=== PATIENT | male | born 1945 | race Caucasian/White ===

== ENCOUNTER → 2016-12-01 | Outpatient (CLI) | payer MEDICARE, OTHER ==
--- NOTE | 2016-12-01 21:45 | US ---
EXAMINATION TYPE: US MSK left ankle, Achilles tendon. DATE OF EXAM: 12/01/2016 11:52 AM COMPARISON: None available CLINICAL HISTORY: 71-year-old male Achilles tendinitis, unspecified leg, patient jumped and landed [address] in August and re-injury later in the year, pain and swelling.. TECHNIQUE: Multiple sonographic images of the left ankle for assessment of the Achilles tendon. Findings: There is extensive abnormality of the Achilles tendon. Along the proximal third fibers, there is marked fusiform thickening measuring up to 1.9 cm AP follow ed by a markedly attenuated and heterogeneous segment measuring only 5.5 mm thick. Below this is a se cond area of marked fusiform thickening at the level of the middle third Achilles tendon measuring 1. 9 cm AP dimension. The insertional fibers are intact. The proximal balled up stump is located approximately 10 cm above the posterior calcaneus. The distal balled up stump is located approximately 6.8 cm proximal to the calcaneus. There is no significant fluid collection. Overlying subcutaneous soft tissue swelling and edema is noted. IMPRESSION: Findings suspicious for subacute to chronic extensive partial tear vs scarred down rupture at the le casi of the middle third segment of the Achilles tendon.
== END | disposition home or self-care (01) ==
LOC: RADUSWWP 10:36
PROVIDERS: ATTEND Family Medicine
DX: M25.572 Pain in left ankle and joints of left foot (principal); M76.62 Achilles tendinitis, left leg

== ENCOUNTER → 2021-04-23 | Outpatient (CLI) | payer MEDICARE, OTHER ==
[2021-04-23 12:32] LABS: HCT 31.1 % (39.0-53.0); HGB 10.9 gm/dL (13.0-17.5); MCH 32.1 pg (25.0-35.0); MCHC 35.1 g/dL (31.0-37.0); MCV 91.5 fL (80.0-100.0); Platelet Count 184 k/uL (150-450); RBC 3.41 m/uL (4.30-5.90); RDW 15.2 % (11.5-15.5); WBC 5.5 k/uL (3.8-10.6)
[2021-04-23 12:49] LABS: Albumin 4.1 g/dL (3.5-5.0); Calcium 9.2 mg/dL (8.4-10.2); Potassium 4.5 mmol/L (3.5-5.1); Total Bilirubin 0.3 mg/dL (0.2-1.3); Total Protein 6.8 g/dL (6.3-8.2)
[2021-04-23 12:51] LABS: INR 0.9 (<1.2)
[2021-04-23 12:55] LABS: Partial Thromboplastin Time 20.9 sec (22.0-30.0)
[2021-04-23 13:23] LABS: Appearance,Urine Clear (Clear); Bilirubin,Urine Negative (Negative); Blood,Urine Negative (Negative); Color,Urine Yellow; Glucose,Urine (UA) Negative (Negative); Ketones,Urine Negative (Negative); Leukocyte Esterase,Urine Moderate (Negative); Nitrite,Urine Negative (Negative); PH, Urine 5.5 (5.0-8.0); Protein,Urine Negative (Negative); RBC,Urine 1 /hpf (0-5); Specific Gravity,Urine 1.016 (1.001-1.035); Squamous Epithelial Cell,Urine <1 /hpf (0-4); Urobilinogen,Urine <2.0 mg/dL (<2.0); WBC,Urine 7 /hpf (0-5)
== END | disposition home or self-care (01) ==
LOC: LABPAT 11:37
PROVIDERS: ATTEND Orthopaedic Surgery
DX: Z01.812 Encounter for preprocedural laboratory examination (principal); M16.12 Unilateral primary osteoarthritis, left hip; I25.2 Old myocardial infarction; R94.31 Abnormal electrocardiogram [ECG] [EKG]
CPT/HCPCS: 36415; 80053; 81001; 85027; 85610; 85730; 86850; 86900; 86901; 87070; 93005

== ENCOUNTER 2021-04-26 13:40 | Day surgery (SDC) | payer MEDICARE ==
[2021-04-21 11:41] VITALS: BMI 31.6
[~2021-04-26 13:40] MED LIST: ACETAMINOPHEN TAB 500 MG TAB PO PRN; HYDROmorphone 0.5 MG/0.5 ML SYRINGE IVP PRN; MELOXICAM 7.5 MG TAB PO PRN; ONDANSETRON 4 MG/2 ML VIAL IVP PRN; TRANEXAMIC ACID 1,000 MG in SODIUM CHLORIDE 0.9% 100 ML IVPB PRN
[2021-04-26 14:29] LABS: Glucose,Whole Blood 109 mg/dL (75-99)
[2021-04-26] MEDS: LACTATED RINGERS 1,000 ML IV SCH ×3 (14:43→23:59)
[2021-04-26] MEDS ORDERED: LIDOCAINE 1% (10MG/ML) FOR IV START INTRADERMA ONE (14:44)
[2021-04-26] MEDS ORDERED: PHENYLEPHRINE-0.9% NACL SYG 1,000 MCG/10 ML SYRINGE ONE (15:34)
[2021-04-26] MEDS ORDERED: TRANEXAMIC ACID 1,000 MG/10 ML VIAL ONE (15:34)
[2021-04-26] MEDS ORDERED: SODIUM CHLORIDE 0.9% 100 ML BAG ONE (15:34)
[2021-04-26] MEDS ORDERED: fentaNYL (PF) 50 MCG/ML 2 ML AMP ONE (15:34)
[2021-04-26] MEDS ORDERED: ePHEDrine SULFATE/0.9% NACL/PF 50 MG/5 ML SYRINGE IV ONE (15:34)
[2021-04-26] MEDS ORDERED: KETAMINE 10 MG/ML 20 ML VIAL ONE (15:34)
[2021-04-26] MEDS ORDERED: PROPOFOL 10 MG/ML 20 ML VIAL IV ONE (15:34)
[2021-04-26] MEDS ORDERED: MIDAZOLAM 2 MG/2 ML VIAL ONE (15:34)
[2021-04-26] MEDS ORDERED: HYDROmorphone 0.2 MG/1 ML SYRINGE IVP PRN (15:43)
[2021-04-26] MEDS ORDERED: MAGNESIUM HYDROXIDE 2,400 MG/10 ML CUP PO PRN (15:43)
[2021-04-26] MEDS ORDERED: HYDROmorphone 0.5 MG/0.5 ML SYRINGE IVP PRN ×2 (15:43)
[2021-04-26] MEDS ORDERED: HYDROcodone/APAP 7.5-325MG 1 EACH TAB PO PRN (15:43)
[2021-04-26] MEDS ORDERED: NALOXONE 0.4 MG/ML 1 ML VIAL IV PRN (15:43)
[2021-04-26] MEDS: ROPIVACAINE/EPI/CLONIDINE/KET 50 ML SYRINGE MISCELLANE PRN ×2 (16:24→17:31)
--- NOTE | 2021-04-26 17:51 | P.OP ---
Date of Procedure: 04/26/21 Procedure(s) Performed: PREOPERATIVE DIAGNOSIS: Right hip severe osteoarthritis POSTOPERATIVE DIAGNOSIS: Right hip severe osteoarthritis OPERATION: Right hip total replacement arthroplasty (hybrid implantation with metal on polyethylene articulation). ANESTHESIA: Spinal ESTIMATED BLOOD LOSS: 200 ml. STAKING PRESS OPERATOR: Laurie Haq PA-C (assistance with: patient positioning, retraction, exposure, hemostasis, leg positioning, implantation, irrigation, closure, dressing) COMPLICATIONS: None apparent. COMPONENTS IMPLANTED: Jerry continuum acetabular cup with cluster holes; continuum longevity 15 elevated liner, 32 mm inner diameter; Jerry VerSys femoral stem; VerSys 32 mm femoral head with 7 mm neck length extension INDICATIONS: Mr. Aguilar is a 76-year-old male with significant end-stage osteoarthritis involving the right hip and commensurate severe symptoms. He presents to the operating room today for total hip replacement. He has a history of a chronic slowly healing wound on his lower right leg that he has had for several months. He is receiving local wound care and has been cleared for hip surgery. Even though he has been cleared, I have discussed extensively with him that he is still at increased risk for infection in his replaced hip. He understands this but relates that his symptoms at this point have become intolerable. He has collapse of his femoral head and has approximately a 5 cm limb length inequality with the right lower extremity being shorter than the lef t. He also understands that approximately 2 cm of correction is possible but beyond that I cannot with confidence tell him that the rest of the difference will be able to be corrected. He also has a severe hip flexion contracture of approximately 25 and severe overall stiffness of the right hip. All of these factors make the hip replacement surgery much more unpredictable. I have discussed the steps of the operation as well as other potential risks and complications as being inclusive of, but not limited to: bleeding, infection, scarring, discomfort, or vessel and/or nerve damage,stiffness, need for further surgery, loosening, dislocation, wear, osteolysis, limb length inequality (which I told him would be unable to be fully corrected by this current surgery), fracture, blood clot, pulmonary embolism, , persistent limp, and other risks. The patient is aware of these risks and wishes to proceed with surgery and has signed a consent form. PROCEDURE: After appropriate consent was obtained, the patient was taken to the operating room and placed in supine position. Spinal anesthetic was administered and after confirmation of adequate anesthesia, the patient was placed into the lateral decubitus position with the right side up. Care was taken to make sure that all pressure points were adequately padded and the patient was stabilized to the table with a [place] hip positioner. The right hip was prepped and draped in the usual aseptic fashion using a combination of ChloraPrep and alcohol. Ioban drape was used for the case and the patient received intravenous antibiotics prior to the incision. Timeout was called, confirming patient identity, side, procedure, availability of implants, and administration of IV antibiotics. The incision was created directly over the greater trochanter and carried slightly posteriorly for a posterior approach to the hip. The incision was then deepened down to subcutaneous tissue and fascia darryl. Fascia darryl was split in line with the incision and split proximally along the fibers of the gluteus ko. The underlying fibers of the muscle were teased apart using finger dissection and bleeding vessels were picked up and coagulated. Retractor was then placed posteriorly consisting of a blunt Tommie. The short external rotators and capsule were exposed using good visualization of the attachment of the external rotators to the femur was established. The short external rotators and capsule were released using electrocautery from their femoral attachments. A hockey stick shaped incision was created in the capsule. Joint fluid was evacuated and the patient's hip was able to be dislocated fairly easily. The patient's femoral head was severely arthritic, collapsed, and out of round. The femoral neck cut was created approximately 1 cm superior to the lesser trochanter using a reciprocating saw. The femoral head and neck fragment was removed and attention was then directed to the acetabulum. An anterior acetabular retractor was applied followed by posterior retraction of the capsule with a Meyerding retractor. This afforded good visualization into the acetabular cavity. End-stage arthritis was noted with some degree of superior erosion of the bone. Soft tissue was removed and residual cartilage within the acetabular vault was removed using a curette. Areas appeared to be bone fragments from the collapsed femoral head were noted in the acetabulum and removed. Labrum was severely calcified and was removed using a long-handled knife. Attention was then directed to reaming. The size 46 reamer was used first , followed by increasing increments until the final size reamer was used. Please see the implantation sheet for exact sizes used for the components. Once the final reamer had been utilized to expand the socket it was noted that there was a good supportive bone around the acetabular socket and no further reaming needed to be performed. The trial the same size as the last reamer used was then impacted into the acetabular vault and found to have good fit. The acetabular size, one size (2mm) greater than the trial was then called for. The cluster holes were placed posteriorly and the component was impacted in a position of approximately 40 degrees abduction and 20 degrees anteversion. This matched this patient's [place] anteversion and it was noted that the cup had excellent stability. A 15 elevated liner was inserted with the elevation posterior superior. Anesthetic solution consisting of ropivacaine with epinephrine, clonidine, and ketorolac was injected in a grid-type fashion around the anterior capsule, posterior capsule, abductor fascia, fascia darryl, subcutaneous tissues, and trochanteric bursa. This solution was injected periodically throughout the case depending on the exposure. Attention was then directed back to the proximal femur. Retractors were placed around the proximal femur and box osteotome was used followed by canal finder and trochanteric reamer. Cylindrical reaming was performed. Progressive broaching was then performed starting with a #10 broach and progressing final size, in a position of 10-15 degrees anteversion. [place] anteversion was within 5 degrees of stem position. The final size broach had excellent fit and fill of the patient's metaphysis and diaphysis. Trial reduction was then performed starting with size 32 mm femoral head and various neck combination of stability, limb length equality, and soft tissue tension. It was noted that even with the maximal femoral neck trial length, the limb was still at least 3 cm shorter compared to the contralateral side. Trial components were then removed. Canal plug was inserted, and cement was mixed on the back table and allowed to reach a doughy consistency. The canal was pulse lavaged and brushed with a canal brush. Cement was then inserted retrograde into the canal and pressurized several times with thumb pressurization technique. The femoral stem component was impacted into position. Excess cement was removed. The cement was allowed to harden completely. The implant fit very well and had excellent stability. The femoral head was then impacted onto the Sharif taper. Blood and debris were removed from the acetabular component and the hip was then reduced and checked for stability, limb length and soft tissue tension. These parameters found to be satisfactory, the wound was then thoroughly irrigated with normal saline. Final hemostasis was obtained using electrocautery and IV tranexamic acid, 1 g given at the time of prepping and draping, and another 1 g given at the time of closure. Surgicel clotting agent was also used topically on the wound. Closure of the capsule was performed meticulously using #3 Vicryl suture. Four yrmcoa-tt-hkhbo sutures were placed in the posterior capsule along with repair of the external rotators. The fascia darryl was then repaired using combination of #3 Vicryl suture in interrupted fashion and Quill and running fashion. 2-0 Vicryl suture was used for the subcutaneous tissues and 3-0 Quill for the skin. Dermabond tape was then applied. The patient tolerated the procedure well. There were no complications and the wound bed was dry and there was no need for drain placement. Sterile dressing was then applied and the patient was carefully removed from the operating room table, placed on the stretcher and was taken to the recovery room in stable condition. Sponge and needle counts were correct.
[2021-04-26] MEDS: metFORMIN 500 MG TAB PO SCH (18:09)
[2021-04-26 18:21] LABS: Glucose,Whole Blood 100 mg/dL (75-99)
[2021-04-26] MEDS ORDERED: ALPRAZolam 0.5 MG TAB PO PRN (18:34)
--- NOTE | 2021-04-26 18:49 | XR ---
EXAMINATION TYPE: XR Hip Limited RT DATE OF EXAM: 04/26/2021 COMPARISON: NONE HISTORY: Postop hip surgery TECHNIQUE: Single view FINDINGS: There is right hip prosthesis. Components appear in anatomic position. IMPRESSION: No complicating process seen.
[2021-04-26] MEDS ORDERED: ATORVASTATIN 10 MG TAB PO SCH (21:00)
[2021-04-26] MEDS ORDERED: SENNOSIDES-DOCUSATE SODIUM 1 EACH TAB PO SCH (21:00)
[2021-04-26 21:10] LABS: Glucose,Whole Blood 111 mg/dL (75-99)
--- NOTE | 2021-04-26 21:33 | P.CONS ---
History of Present Illness - Reason for Consult Consult date: 04/26/21 Medical management Requesting physician: Wilber Smith - Chief Complaint Right hip pain - History of Present Illness Consultation: This is a pleasant 76-year-old patient of Dr. Ramu Lara. Chronic stable medical conditions include diabetes mellitus, hypertension, hyperlipidemia, obstructive sleep apnea uses CPAP, cervical neuropathy. Patient has undergone right hip arthroplasty. Postprocedure pain is controlled. No nausea vomiting. Denies any cardiac history. Currently no chest pain or shortness of breath. Laying in bed. Did tolerate a light supper. Review of systems: GEN.: EYES: None HEENT: None NECK: None RESPIRATORY: None CARDIOVASCULAR: None GASTROINTESTINAL: None GENITOURINARY: None MUSCULOSKELETAL: Joint pains] LYMPHATICS: None HEMATOLOGICAL: None PSYCHIATRY: None NEUROLOGICAL: None Past medical history to include: Diabetes mellitus, hyperlipidemia, hypertension, primary osteoarthritis, prostate disorder, obstructive sleep apnea uses CPAP, patient up in the neck Social history: Drinks 2-3 beers a day. Sometimes more on social occasions. Does smoke marijuana frequently. Lives alone. Retired. Family history: Reviewed, noncontributory to presentation Physical examination: VITAL SIGNS: 98.1, 76, 16, 1 35/87, 100% room air GENERAL: BMI 32.7, reclining in bed, comfortable. EYES: Pupils equal. Conjunctiva normal. HEENT: External appearance of nose and ears normal, oral cavity grossly normal. NECK: JVD not raised; masses not palpable. HEART: First and second heart sounds are normal; no edema. LUNGS: Respiratory rate normal; clear to auscultation. ABDOMEN: Soft, nontender, liver spleen not palpable, no masses palpable. PSYCH: Alert and oriented x3; mood and affect normal MUSCULOSKELETAL: Evidence of OA in the hands, dressing over the right hip incision. NEUROLOGICAL: Cranial nerves grossly intact; no facial asymmetry, power and sensation grossly intact. LYMPHATICS: No lymph nodes palpable in the axilla and neck INVESTIGATIONS, reviewed in the clinical context: WBC 5.5. Vitamin 10.9 platelets 184 potassium 4.5 bun 24 creatinine 1.5 Coronavirus [PCR]: Not detected EKG from 04/23/2021: Normal sinus rhythm Assessment and plan: -Right total hip arthroplasty -Obesity BMI 32.7 Weight loss measures, and follow with PCP -Diabetes mellitus type type II on oral hypoglycemic Continue Glucophage. Hold Glucotrol. Follow Accu-Cheks -Chronic kidney disease stage III likely diabetic nephropathy and. Hypertensive nephrosclerosis Follow-up with PCP. Patient is not to take take Mobic or any NSAIDs. -Chronic constipation On Senokot-S -Hyperlipidemia Continue Zocor -BPH On Flomax -Essential hypertension on Diovan hydrochlorothiazide Care was discussed with the patient. Questions answered. Home medications resumed. Follow Accu-Cheks. We'll Glucotrol for now. Patient should follow up with Dr. Lara upon discharge. Thank you Dr. Smith Past Medical History Past Medical History: Diabetes Mellitus, Hyperlipidemia, Hypertension, Osteoarthritis (OA), Prostate Disorder, Sleep Apnea/CPAP/BIPAP Additional Past Medical History / Comment(s): R hip pain, uses CPAP, pinched nerve currently in neck History of Any Multi-Drug Resistant Organisms: None Reported Past Surgical History: Appendectomy, Cholecystectomy, Orthopedic Surgery Additional Past Surgical History / Comment(s): L mandibular surgery, Bilat. knee replacements. Past Anesthesia/Blood Transfusion Reactions: No Reported Reaction Past Psychological History: No Psychological Hx Reported Smoking Status: Former smoker Past Alcohol Use History: Daily Additional Past Alcohol Use History / Comment(s): quit smoking 25 years ago, 1ppd since early , 2-8 beers daily Past Drug Use History: Marijuana Additional Drug Use History / Comment(s): most every day - Past Family History Mother Family Medical History: No Reported History Son(s) Family Medical History: Deep Vein Thrombosis (DVT), Pulmonary Embolus Medications and Allergies Home Medications Medication Instructions Recorded Confirmed Type ALPRAZolam [Xanax] 0.5 mg PO BID PRN 10/19/18 04/26/21 History Ascorbic Acid [Vitamin C] 1,000 mg PO DAILY 10/19/18 04/26/21 History Cholecalciferol (Vitamin D3) 2,000 unit PO DAILY 10/19/18 04/26/21 History [Vitamin D3] Cyanocobalamin (Vitamin B-12) 2,500 mcg PO DAILY 10/19/18 04/26/21 History [Vitamin B-12] Glucosam/Luisito-Msm1/C/Nando/Bosw 1 each PO BID 10/19/18 04/26/21 History [Uzqxvasknzj-Getqxypinax-SUG Tb] Simvastatin [Zocor] 10 mg PO HS 10/19/18 04/26/21 History Valsartan/Hydrochlorothiazide 1 tab PO DAILY 10/19/18 04/26/21 History [Diovan Hct 320-25 mg Tablet] buPROPion HCL [Wellbutrin SR] 150 mg PO BID 10/19/18 04/26/21 History cycloSPORINE 0.05% OPHTH SOLN 1 applicator BOTH EYES DAILY 10/19/18 04/26/21 History [Restasis] glipiZIDE [Glucotrol] 5 mg PO AC-BID 10/19/18 04/26/21 History metFORMIN HCL [Glucophage] 1,000 mg PO BID 10/19/18 04/26/21 History Aspirin 81 mg PO DAILY 04/21/21 04/26/21 History Tamsulosin HCl [Flomax] 0.4 mg PO BID 04/21/21 04/26/21 History Aspirin [Adult Low Dose Aspirin EC] 81 mg PO BID #1 tablet. 04/26/21 Rx HYDROcodone/APAP 7.5-325MG [[place] 1 - 2 tab PO Q6HR PRN #42 tab 04/26/21 Rx 7.5-325] Meloxicam [Mobic] 1 - 2 tab PO DAILY PRN #60 tab 04/26/21 Rx Sennosides-Docusate Sodium 1 tab PO BID #60 tablet 04/26/21 Rx [Senokot-S] Allergies Allergy/AdvReac Type Severity Reaction Status Date / Time No Known Allergies Allergy Verified 04/26/21 14:03 Physical Exam Vitals: Vital Signs Temp Pulse Resp BP Pulse Ox 04/26/21 18:29 98.1 F 76 16 135/87 04/26/21 18:28 76 14 116/64 100 04/26/21 18:13 79 16 123/73 100 04/26/21 17:58 97.9 F 79 14 128/76 99 04/26/21 14:01 98.0 F 85 16 154/86 98 Intake and Output 04/26/21 04/26/21 04/26/21 06:59 14:59 22:59 Intake Total 400 1750 Output Total 200 Balance 400 1550 Intake: IV 400 1750 Output: Estimated Blood Loss 200 Other: Weight 112.4 kg 112.4 kg Results Labs: Abnormal Lab Results - Last 24 Hours (Table) 04/26/21 04/26/21 04/26/21 Range/Units 14:25 18:19 21:09 POC Glucose (mg/dL) 109 H 100 H 111 H (75-99) mg/dL
[2021-04-26] MEDS: TAMSULOSIN 0.4 MG CAP.ER.24H PO SCH (23:08)
[2021-04-26] MEDS: ASPIRIN 81 MG PO SCH (23:08)
[2021-04-26] MEDS: buPROPion SR 150 MG TABLET.ER PO SCH (23:08)
[2021-04-26] MEDS: INSULIN ASPART (NovoLOG) 100 UNIT/ML VIAL SQ SCH (23:11)
[2021-04-27] MEDS: LACTATED RINGERS 1,000 ML IV SCH ×2 (00:08→10:37)
[2021-04-27 07:17] VITALS: BP 143/86; PULSE 90; RESP 16; TEMP 98.4
[2021-04-27 07:32] LABS: Glucose,Whole Blood 159 mg/dL (75-99)
[2021-04-27] MEDS ORDERED: CYANOCOBALAMIN 500 MCG TAB PO SCH (09:00)
[2021-04-27] MEDS ORDERED: CHOLECALCIFEROL 25 MCG (1000 IU) TABLET PO SCH (09:00)
[2021-04-27] MEDS ORDERED: hydroCHLOROthiazide 25 MG TAB PO SCH (09:00)
[2021-04-27] MEDS ORDERED: MELOXICAM 7.5 MG TAB PO SCH (09:00)
[2021-04-27] MEDS ORDERED: cycloSPORINE 0.05% OPHTH 0.4 ML DROPERETTE BOTH EYES SCH (09:00)
[2021-04-27] MEDS ORDERED: ASCORBIC ACID 500 MG TAB PO SCH (09:00)
[2021-04-27] MEDS ORDERED: VALSARTAN 160 MG TAB PO SCH (09:00)
--- NOTE | 2021-04-27 09:10 | P.DS ---
Providers Expected date of discharge: 04/27/21 Attending physician: Wilber Smith Consults: 04/26/21 18:33 Consult Physician Routine Consulting Provider: Endy Gonzalez Consult Reason/Comments: medical management Do you want consulting provider notified?: Yes Primary care physician: Ramu Lara - Discharge Diagnosis(es) (1) Osteoarthritis of right hip Current Visit: Yes Status: Acute (2) S/P total hip arthroplasty Current Visit: Yes Status: Acute Hospital Course: This is a 76-year-old male with known history of degenerative arthritis of the right hip. The patient presented for evaluation as an outpatient. After discussion and consideration patient elects to proceed with total hip arthroplasty. The patient is seen preoperatively by Dr. Smith and medically cleared for surgery by their primary care physician. Patient is admitted to [facility] on 04/26/2021 for total hip arthroplasty. The procedure is performed without complication or sequelae. The patient is doing well postoperatively. Labs and vital signs are stable on day of discharge. On day of discharge patient's hip incision is healing well. There is minimal erythema. There is no drainage noted at this time. There is minimal soft tissue swelling to the hip and thigh. Patient has full foot and ankle motion without difficulty or pain. Calf is soft and nontender to palpation. Neurovascular status to the right lower extremity is intact. Patient is discharged home in good condition. Please see med rec for accurate list of home medications. Plan - Discharge Summary Discharge Rx Participant: Yes New Discharge Prescriptions: New Aspirin [Adult Low Dose Aspirin EC] 81 mg PO BID #1 tablet.dr Mcgee-Docusate Sodium [Senokot-S] 1 tab PO BID #60 tablet HYDROcodone/APAP 7.5-325MG [[place] 7.5-325] 1 - 2 tab PO Q6H PRN #42 tab PRN Reason: Pain No Action Glucosam/Luisito-Msm1/C/Nando/Bosw [Uokeommgace-Ssgkowndjzq-SGD Tb] 1 each PO BID Cholecalciferol (Vitamin D3) [Vitamin D3] 2,000 unit PO DAILY Cyanocobalamin (Vitamin B-12) [Vitamin B-12] 2,500 mcg PO DAILY cycloSPORINE 0.05% OPHTH SOLN [Restasis] 1 applicator BOTH EYES DAILY ALPRAZolam [Xanax] 0.5 mg PO BID PRN PRN Reason: Anxiety metFORMIN HCL [Glucophage] 1,000 mg PO BID glipiZIDE [Glucotrol] 5 mg PO AC-BID Simvastatin [Zocor] 10 mg PO HS buPROPion HCL [Wellbutrin SR] 150 mg PO BID Valsartan/Hydrochlorothiazide [Diovan Hct 320-25 mg Tablet] 1 tab PO DAILY Ascorbic Acid [Vitamin C] 1,000 mg PO DAILY Aspirin 81 mg PO DAILY Tamsulosin HCl [Flomax] 0.4 mg PO BID Discharge Medication List ALPRAZolam [Xanax] 0.5 mg PO BID PRN 10/19/18 [History] Ascorbic Acid [Vitamin C] 1,000 mg PO DAILY 10/19/18 [History] Cholecalciferol (Vitamin D3) [Vitamin D3] 2,000 unit PO DAILY 10/19/18 [History] Cyanocobalamin (Vitamin B-12) [Vitamin B-12] 2,500 mcg PO DAILY 10/19/18 [History] Glucosam/Luis[place]-Msm1/C/Nando/Bosw [Yjansyvmmmd-Idpvayehdpw-TJF Tb] 1 each PO BID 10/19/18 [History] Simvastatin [Zocor] 10 mg PO HS 10/19/18 [History] Valsartan/Hydrochlorothiazide [Diovan Hct 320-25 mg Tablet] 1 tab PO DAILY 10/19/18 [History] buPROPion HCL [Wellbutrin SR] 150 mg PO BID 10/19/18 [History] cycloSPORINE 0.05% OPHTH SOLN [Restasis] 1 applicator BOTH EYES DAILY 10/19/18 [History] glipiZIDE [Glucotrol] 5 mg PO AC-BID 10/19/18 [History] metFORMIN HCL [Glucophage] 1,000 mg PO BID 10/19/18 [History] Aspirin 81 mg PO DAILY 04/21/21 [History] Tamsulosin HCl [Flomax] 0.4 mg PO BID 04/21/21 [History] Aspirin [Adult Low Dose Aspirin EC] 81 mg PO BID #1 tablet. 04/26/21 [Rx] Sennosides-Docusate Sodium [Senokot-S] 1 tab PO BID #60 tablet 04/26/21 [Rx] HYDROcodone/APAP 7.5-325MG [[place] 7.5-325] 1 - 2 tab PO Q6H PRN #42 tab 04/27/21 [Rx] Follow up Appointment(s)/Referral(s): Ramu Lara MD [Primary Care Provider] - 1 Week Wilber Smith MD [STAFF PHYSICIAN] - 2 Weeks Activity/Diet/Wound Care/Special Instructions: May bear wt as tolerated w walker. May shower 48h post op. Continue hip dislocation precautions. Continue use of pillow between legs for 6 weeks while sleeping. Leave Optifoam dressing intact 7-10 days. Discharge Disposition: HOME WITH HOME HEALTH SERVICES
[2021-04-27] MEDS: TAMSULOSIN 0.4 MG CAP.ER.24H PO SCH (09:11)
[2021-04-27] MEDS: metFORMIN 500 MG TAB PO SCH (09:11)
[2021-04-27] MEDS: ASPIRIN 81 MG PO SCH (09:11)
[2021-04-27] MEDS: INSULIN ASPART (NovoLOG) 100 UNIT/ML VIAL SQ SCH (09:12)
[2021-04-27] MEDS: buPROPion SR 150 MG TABLET.ER PO SCH (09:13)
[2021-04-27 11:09] LABS: Basophils # (A) 0.02 X 10*3/uL (0.00-0.10); Basophils % (A) 0.3 %; Eosinophils # (A) 0.15 X 10*3/uL (0.04-0.35); Eosinophils % (A) 2.4 %; HCT 27.7 % (39.6-50.0); HGB 9.1 g/dL (13.0-17.0); Lymphocytes # (A) 0.87 X 10*3/uL (0.90-5.00); Lymphocytes % (A) 14.1 %; MCHC 32.9 g/dL (32.0-37.0); MCV 94.2 fL (80.0-97.0); Mean Platelet Volume 10.8 fL (9.5-12.2); Monocytes # (A) 0.83 X 10*3/uL (0.20-1.00); Monocytes % (A) 13.5 %; Neutrophils # (A) 4.28 X 10*3/uL (1.80-7.70); Neutrophils % (A) 69.4 %; Platelet Count 156 X 10*3/uL (140-440); RBC 2.94 X 10*6/uL (4.40-5.60); RDW 15.5 % (11.5-14.5); WBC 6.17 X 10*3/uL (4.50-10.00)
--- NOTE | 2021-04-27 21:27 | P.PN ---
Progress Note - Text Progress Note Date: 04/27/21 - Chief Complaint Right hip pain Consultation: This is a pleasant 76-year-old patient of Dr. Ramu Lara. Chronic stable medical conditions include diabetes mellitus, hypertension, hyperlipidemia, obstructive sleep apnea uses CPAP, cervical neuropathy. Patient has undergone right hip arthroplasty. Today: Sitting up. Pain control. No chest pain or shortness of breath. Had a good breakfast. Looking forward to go home. Review of systems: Was done for constitutional, cardiovascular, GI, pulmonary. relevant finding as above Current medications reviewed in today's electronic records Past medical history to include: Diabetes mellitus, hyperlipidemia, hypertension, primary osteoarthritis, prostate disorder, obstructive sleep apnea uses CPAP, patient up in the neck Social history: Drinks 2-3 beers a day. Sometimes more on social occasions. Does smoke marijuana frequently. Lives alone. Retired. Family history: Reviewed, noncontributory to presentation Physical examination: VITAL SIGNS: 98.4, 90, 16, 143/86, 97% room air GENERAL: Sitting up in a chair, comfortable. EYES: Pupils equal. Conjunctiva normal. NECK: JVD not raised; masses not palpable. HEART: First and second heart sounds are normal; no edema. LUNGS: Respiratory rate normal; clear to auscultation. ABDOMEN: Soft, nontender, liver spleen not palpable, no masses palpable. PSYCH: Alert and oriented x3; mood and affect normal MUSCULOSKELETAL: Evidence of OA in the hands, dressing over the right hip incision. INVESTIGATIONS, reviewed in the clinical context: April 27: WBC 6.1 hemoglobin 9.1 platelets 156 WBC 5.5. Vitamin 10.9 platelets 184 potassium 4.5 bun 24 creatinine 1.5 Coronavirus [PCR]: Not detected EKG from 04/23/2021: Normal sinus rhythm Assessment and plan: -Right total hip arthroplasty -Obesity BMI 32.7 Weight loss measures, and follow with PCP -Diabetes mellitus type type II on oral hypoglycemic Continue Glucophage. Hold Glucotrol. Follow Accu-Cheks -Chronic kidney disease stage III likely diabetic nephropathy and. Hypertensive nephrosclerosis Follow-up with PCP. Patient is not to take take Mobic or any NSAIDs. -Chronic constipation On Senokot-S -Hyperlipidemia Continue Zocor -BPH On Flomax -Essential hypertension on Diovan hydrochlorothiazide Discussed with the patient. Questions answered. Patient should follow up with Dr. Lara upon discharge. Resume glipizide tomorrow. Check Accu-Cheks every morning. Thank you Dr. Smith
== END 2021-04-27 11:16 | disposition home health service (06) ==
LOC: OR 13:40 → 4SSUR 17:58 → OR 04-27 11:16
PROVIDERS: ATTEND Orthopaedic Surgery
DX: I10 Essential (primary) hypertension (principal); E78.5 Hyperlipidemia, unspecified; G47.33 Obstructive sleep apnea (adult) (pediatric); G54.2 Cervical root disorders, not elsewhere classified; M19.91 Primary osteoarthritis, unspecified site; Z79.899 Other long term (current) drug therapy; Z87.11 Personal history of peptic ulcer disease; Z98.890 Other specified postprocedural states; Z87.891 Personal history of nicotine dependence
CPT/HCPCS: 27130; 97110; 97161; 97535; 97165; 85025; 88300; 87635; 73501; C1776; C1713; J2250; S0106 ×2; J0690 ×2; J2405; J3010; J2370; J2704; 36415; 86850; 86900; 86901

== ENCOUNTER → 2023-04-29 | Outpatient (CLI) | payer MEDICARE ==
[2023-04-30 01:16] LABS: Appearance,Urine Clear (Clear); Bilirubin,Urine Negative (Negative); Blood,Urine Negative (Negative); Color,Urine Yellow (Yellow); Ketones,Urine Negative (Negative); Nitrite,Urine Negative (Negative); PH, Urine 5.5; Specific Gravity,Urine 1.011 (1.001-1.030); Urobilinogen,Urine 0.2 E.U./DL
[2023-04-30 08:11] LABS: HCT 32.7 % (39.6-50.0); HGB 10.2 d/dL (12.0-15.0); MCH 30.4 pg (27.0-32.0); MCHC 31.2 d/dL (32.0-37.0); MCV 97.6 FL (80.0-97.0); Mean Platelet Volume 10.9 FL (9.5-12.2); NRBC Per 100 WBC 0 X 10*3/uL (0.00-0.01); Platelet Count 214 X 10*3/uL (140-440); RBC 3.35 X 10*6/uL (4.40-5.60); RDW 16.6 % (11.5-14.5); WBC 6.05 X 10*3/uL (4.50-10.00)
[2023-04-30 08:44] LABS: % Iron Saturation 18.87 (15.00-50.00); ALT 19 U/L (10-49); AST 16 U/L (14-35); Albumin 4.2 d/dL (3.8-4.9); Alkaline Phosphatase 90 U/L (41-126); BUN/Creat Ratio 17.94 Ratio (12.00-20.00); Blood Urea Nitrogen 30.5 mg/dL (9.0-27.0); Calcium 9.3 mg/dL (8.7-10.3); Carbon Dioxide 23.9 mmol/L (21.6-31.8); Chloride 103 mmol/L (96-109); Globulin 2.8 d/dL (1.6-3.3); Glucose 180 mg/dL (70-110); Iron 60 UG/DL (65-175); Magnesium 2.1 mg/dL (1.5-2.4); Phosphorus 4.3 mg/dL (2.4-5.1); Potassium 4.7 mmol/L (3.5-5.5); Sodium 137 mmol/L (135-145); Total Bilirubin 0.4 mg/dL (0.3-1.2); Total Iron Binding Capacity 318 UG/DL (228-460); Uric Acid 7.8 mg/dL (3.7-8.7)
== END | disposition home or self-care (01) ==
LOC: LABWHC1 10:02
PROVIDERS: ATTEND Nurse Practitioner Family
DX: N25.81 Secondary hyperparathyroidism of renal origin (principal); N17.9 Acute kidney failure, unspecified; D64.9 Anemia, unspecified; N39.0 Urinary tract infection, site not specified; E55.9 Vitamin D deficiency, unspecified; M10.9 Gout, unspecified
CPT/HCPCS: 36415; 80053; 81003; 82306; 82728; 83540; 83550; 83735; 83970; 84100; 84550; 85027

== ENCOUNTER → 2023-05-17 | Outpatient (CLI) | payer MEDICARE ==
--- NOTE | 2023-05-17 18:34 | US ---
EXAMINATION TYPE: US kidneys/renal and bladder DATE OF EXAM: 05/17/2023 COMPARISON: Renal ultrasound 06/20/2012 CLINICAL INDICATION: Male, 78 years old with history of N17.9 ACUTE KIDNEY FAILURE, UNSPECIFIED; CKD EXAM MEASUREMENTS: Right Kidney: 10.3x5.7x5.4 cm Left Kidney: 11.5x5.4x5.0 cm Right Kidney: No hydronephrosis or masses seen Left Kidney: No hydronephrosis or masses seen Bladder: wall is trabeculated Bilateral Jets seen: Yes Limited examination due to patient's body habitus. There is no evidence for hydronephrosis at this po int in time. No nephrolithiasis is seen. Cortical medullary differentiation is maintained. No rené s are identified. The urinary bladder is anechoic with trabeculated wall. Bilateral ureteral jets a re seen. Spleen is at the top end of normal for size measuring up to 13.1 cm in length. Enlarged pros robbins gland measuring 8.0 x 5.5 cm. IMPRESSION: 1. No nephrolithiasis or hydronephrosis. 2. Trabeculated urinary bladder with enlarged prostate suggesting chronic outlet obstruction.
== END | disposition home or self-care (01) ==
LOC: RADUSWWP 15:18
PROVIDERS: ATTEND Internal Medicine Nephrology
DX: N17.9 Acute kidney failure, unspecified (principal); N40.0 Benign prostatic hyperplasia without lower urinary tract symptoms
CPT/HCPCS: 76770

== ENCOUNTER → 2023-10-09 | Outpatient (CLI) | payer MEDICARE ==
--- NOTE | 2023-10-09 11:08 | US ---
EXAMINATION TYPE: US kidneys/renal and bladder DATE OF EXAM: 10/09/2023 COMPARISON: 05/17 CLINICAL INDICATION: Male, 78 years old with history of N18.32 CKD; CKD f/u EXAM MEASUREMENTS: Right Kidney: 9.6x6.2x5.4 cm Left Kidney: 10.5x5.3x5.2 cm Right Kidney: wnl Left Kidney: wnl Bladder: heterogenous wall Bilateral Jets seen: Yes There is no evidence for hydronephrosis at this point in time. No nephrolithiasis is seen. No rené s are identified. The urinary bladder is anechoic. Bilateral ureteral jets are seen. exam slightly limited by body habitus, prostate appears enlarged, transabdominal volume estimate: 78. 4ml PSA estimate: 9.4 IMPRESSION: Urinary bladder wall heterogeneity is nonspecific. Correlate for cystitis.
== END | disposition home or self-care (01) ==
LOC: RADUSWWP 10:19
PROVIDERS: ATTEND Internal Medicine
DX: N18.32 Chronic kidney disease, stage 3b (principal); N32.89 Other specified disorders of bladder
CPT/HCPCS: 76770

== ENCOUNTER → 2025-02-10 | Outpatient (CLI) | payer MEDICARE ==
--- NOTE | 2025-02-10 10:27 | US ---
EXAMINATION TYPE: US kidneys/renal and bladder DATE OF EXAM: 02/10/2025 COMPARISON: US 2022 CLINICAL INDICATION: Male, 80 years old with history of N18.32 CHRONIC KIDNEY DISEASE, STAGE 3B; TECHNIQUE: Grayscale imaging of the bilateral kidneys and urinary bladder: FINDINGS: EXAM MEASUREMENTS: Right Kidney: 10.0 x 5.7 x 5.0 cm Left Kidney: 9.7 x 5.4 x 5.6 cm Difficult and limited due to patient body habitus Right Kidney: No hydronephrosis or masses seen Left Kidney: No hydronephrosis or masses seen Bladder: wnl Bilateral Jets seen: no Prostate: enlarged There is no evidence for hydronephrosis at this point in time. No nephrolithiasis is seen. No rené s are identified. The urinary bladder is anechoic. IMPRESSION: No hydronephrosis seen bilaterally. [facility], , 02/10/2025 10:25 AM
== END | disposition home or self-care (01) ==
LOC: RADUSWWP 09:31
PROVIDERS: ATTEND Internal Medicine
DX: N18.32 Chronic kidney disease, stage 3b (principal); N40.0 Benign prostatic hyperplasia without lower urinary tract symptoms
CPT/HCPCS: 76770

== ENCOUNTER → 2025-06-13 | Outpatient (CLI) | payer MEDICARE ==
--- NOTE | 2025-06-14 17:37 | PE ---
EXAMINATION TYPE: PET CT fusion skull to thigh DATE OF EXAM: 06/13/2025 CLINICAL INDICATION:Male, 80 years old with history of C43.61 MELANOMA; TECHNIQUE: Following the intravenous administration of 11.5 mCi of F-18 FDG, whole body images are performed from the skull vertex to the toes. Images are reviewed on the computer in the coronal, axi al, and sagittal planes. Reconstructed rotating images are created on independent workstation and re viewed on the computer. A non-contrast CT is performed in conjunction with the PET scan. Glucose le casi 170 mg/dL CT DLP: 1675.3 mGycm, Automated exposure control for dose reduction was used. COMPARISON: CT None, PET/CT None, MRI: None FINDINGS: Mediastinal SUV mean is 2.6. Hepatic parenchyma SUV mean is 3.6. SKULL BASE AND NECK: No suspicious radiotracer activity. CHEST, MEDIASTINUM, AND HILAR REGION: No suspicious radiotracer activity. ABDOMEN AND PELVIS: No suspicious radiotracer activity. MUSCULOSKELETAL STRUCTURES: Heterogenous FDG uptake throughout the spine. Favored to represent degenerative spinal disease. OTHER CT: Bilateral aphakia. Atherosclerotic calcification of the intracranial vasculature. Moderate to severe left and moderate right carotid bifurcation calcifications. Atherosclerotic calcification o f the aorta and its branches. Moderate aortic valvular calcifications. Moderate mitral annulus calcif ications. Mild cardiomegaly. Small right and moderate left pleural effusions with associated atelecta sis. Right apical pleural-parenchymal scarring. Small hiatal hernia. Gallbladder is surgically absent . Nonspecific bilateral perinephric fat stranding. A supraumbilical fat filled small hernia. Distal c olonic diverticulosis without evidence for acute diverticulitis. Enlarged prostate gland measuring 6. 7 cm in transverse dimension. Multiple pelvic phleboliths. Moderate right-sided hydrocele. Postsurgic al changes from right hip arthroplasty. Postsurgical changes from bilateral knee arthroplasty. Subcut aneous edema of the bilateral lower extremities. Osteoarthritic changes of both great toes. Multileve l degenerative changes of the spine. IMPRESSION: 1. No definitive suspicious radiotracer activity to suggest metastasis. 2. Moderate left and small right pleural effusions with associated atelectasis. [facility], , 06/14/2025 5:35 PM
== END | disposition home or self-care (01) ==
LOC: RADPETMAIN 08:32
PROVIDERS: ATTEND Internal Medicine
DX: C43.61 Malignant melanoma of right upper limb, including shoulder (principal); J90 Pleural effusion, not elsewhere classified; J98.11 Atelectasis
CPT/HCPCS: 78815; A9552